=== PATIENT | female | born 1965 | race Two or more races ===

== ENCOUNTER 2020-11-20 13:22 | Emergency (ER) | payer SELFPAY ==
[~2020-11-20] VITALS: Ht 162.6 cm; Wt 93.4 kg
--- NOTE | 2020-11-20 13:45 | NUR ---
MD at bedside to assess pt
[2020-11-20 13:56] LABS: *BILIRUBIN,URIN NEGATIVE (NEGATIVE); *BLOOD, URINE 1+ (NEGATIVE); *CLARITY,URINE CLEAR (CLEAR); *COLOR,URINE YELLOW (YELLOW); *KETONES,URINE NEGATIVE (NEGATIVE); *UROBILINOGEN,URINE 0.2 E.U./dl (NORMAL); LEUKOCYTE ESTERASE ,URINE TRACE (NEGATIVE); NITRITE, URINE NEGATIVE (NEGATIVE); PH,URINE 5.5 (5.0-8.0); UGLUCOSE NEGATIVE (NEGATIVE)
[2020-11-20] MEDS ORDERED: KETOROLAC TROMETHAMINE 15 MG INJ IVP ONE (14:00)
[2020-11-20] MEDS ORDERED: IV NORMAL SALINE 1000 ML BAG IV ONE (14:00)
[2020-11-20] MEDS ORDERED: ONDANSETRON 4 MG/2 ML VIAL IV ONE (14:00)
[2020-11-20] MEDS ORDERED: KETOROLAC TROMETHAMINE 30 MG INJ ONE (14:07)
[2020-11-20] MEDS ORDERED: ONDANSETRON 4 MG/2 ML VIAL ONE (14:07)
[2020-11-20 14:35] LABS: BASOPHILS % (AUTO) 0.7 % (0.0-2.0); EOSINOPHILS # (AUTO) 0.2 K/uL (0.0-0.7); HEMATOCRIT 38.5 % (31.2-41.9); HEMOGLOBIN 12.8 g/dL (10.9-14.3); LYMPHOCYTES # (AUTO) 1.9 K/uL (20.0-40.0); LYMPHOCYTES % (AUTO) 32.2 % (20.5-51.5); MEAN CORPUSCULAR HEMOGLOBIN 30.2 uug (24.7-32.8); MEAN CORPUSCULAR HGB CONC 33 g/dL (32.3-35.6); MEAN CORPUSCULAR VOLUME 90.4 fL (75.5-95.3); MONOCYTES # (AUTO) 0.4 K/uL (2.0-10.0); MONOCYTES % (AUTO) 6.3 % (0.0-11.0); NEUTROPHILS # (AUTO) 3.4 K/uL (1.8-8.9); NEUTROPHILS % (AUTO) 57.8 % (38.5-71.5); PLATELET COUNT (AUTO) 195 K/uL (179-408); RED BLOOD CELL COUNT(AUTO) 4.26 MIL/uL (3.63-4.92); WHITE BLOOD COUNT (AUTO) 5.9 K/uL (3.8-11.8)
[2020-11-20 14:38] LABS: POTASSIUM 3.8 mmol/L (3.5-5.1)
[2020-11-20 14:43] LABS: BILIRUBIN,DIRECT 0.2 mg/dL (0.0-0.2); BILIRUBIN,TOTAL 0.8 mg/dL (0.2-1.0); TOTAL PROTEIN, SERUM 6.3 g/dL (6.4-8.2)
--- NOTE | 2020-11-20 15:17 | NUR ---
pt alert, [place] speaking. complained of blood in urine and burning upon urination.
--- NOTE | 2020-11-20 15:17 | NUR ---
pt stated pain is much better. resting comfortably in the room. given blanket
[2020-11-20] MEDS ORDERED: IBUP-1957 PO (16:12)
[2020-11-20] MEDS ORDERED: TAMS-3 PO (16:12)
[2020-11-20] MEDS ORDERED: DOCU-141 PO (16:12)
[2020-11-20] MEDS ORDERED: HYDR-3980 PO (16:12)
[2020-11-20] MEDS ORDERED: CEPH500C2 PO (16:17)
--- NOTE | 2020-11-20 16:28 | NUR ---
Patient discharged to home in stable condition. Written and verbal after care instructions given. Patient verbalizes understanding of instructions. Stressed follow up or return to ER for worsening s/s. discharge instructions given in [place] for pt to read. copies of prescription given.
[2020-11-20 16:29] VITALS: BP 106/83
[2020-11-20 19:11] LABS: WBC,URINE 0-3 /HPF (0-3)
[2020-11-20 19:12] LABS: BACTERIA,URINE FEW /HPF (NONE SEEN); SQUAMOUS EPITHELIAL CELL,UR FEW /HPF (NONE SEEN)
== END 2020-11-20 16:30 | disposition home or self-care (01) ==
LOC: ER 13:22
DX: M54.9 Dorsalgia, unspecified (principal); R10.31 Right lower quadrant pain
CPT/HCPCS: 76770; 80048; 80076; 81001; 83690; 85025; 87086; 96361; 96374; 96375; 99284; J1885; J2405; A4663; J7030